=== PATIENT | female | born 1990 | race Caucasian/White ===

== ENCOUNTER 2018-04-06 15:01 | Emergency (ER) | payer OTHER ==
[~2018-04-06] VITALS: Ht 170.2 cm; Wt 72.8 kg
[~2018-04-06 15:01] MED LIST: FIORICET,ESG1 TABLET PO; NAPROSYN500 MG PO; PRENATAL TABLE1 EAC3 PO; TUMS500 MG PO
[2018-04-06] MEDS ORDERED: BUSPAR10 MG PO (15:11)
[2018-04-06] MEDS ORDERED: SERTRALINE HCL100 MG PO (15:12)
[2018-04-06 15:27] LABS: APPEARANCE SL.HAZY ((CLEAR)); BILIRUBIN NEGATIVE; BLOOD LARGE; COLOR STRAW ((YELLOW)); GLUCOSE (STRIP) NEGATIVE; KETONES NEGATIVE; LEUKOCYTES NEGATIVE; NITRITE NEGATIVE; PROTEIN (STRIP) NEGATIVE; SPECIFIC GRAVITY 1.006 (1.000-1.030); UROBILINOGEN 0.2 MG/DL (0.2-1.0)
[2018-04-06 15:30] LABS: HEMATOCRIT 36.2 % (36.0-46.0); HEMOGLOBIN 12.3 G/DL (11.9-15.5); MCH 29.4 PG (29.0-34.0); MCV 86.4 FL (83-99); PLATELET COUNT 366 K/uL (156-360); RBC DIS.WIDTH-CV 13.3 % (11.8-14.6); RBC DIS.WIDTH-SD 41.3 % (39-53); RED BLOOD COUNT 4.19 M/uL (3.80-5.20); WHITE BLOOD COUNT 12.2 K/uL (4.1-10.2)
[2018-04-06 15:31] LABS: BACTERIA RARE /HPF; EPITHELIAL CELLS 1+ /HPF; MUCUS TRACE /LPF; RED BLOOD CELLS 30-40 /HPF (0-5); UCUL ADDED? NO; WHITE BLOOD CELLS 0-5 /HPF (0-5)
[2018-04-06 15:42] LABS: ALBUMIN 4.4 g/dL (3.2-4.8); CHLORIDE 103 mEq/L (99-109); POTASSIUM 4.1 mEq/L (3.7-5.4); SODIUM 138 mEq/L (136-147)
[2018-04-06 15:44] LABS: GLUCOSE 88 mg/dL (70-99)
[2018-04-06 15:45] LABS: TOTAL PROTEIN 7.4 g/dL (6.4-8.3)
[2018-04-06 15:46] LABS: TOTAL BILIRUBIN 1.1 mg/dL (0.0-1.0)
[2018-04-06 15:48] LABS: ALKALINE PHOSPHATASE 64 IU/L (3-129); CREATININE 0.7 mg/dL (0.6-1.3); GFR ESTIMATE (CALCULATED) > 59 mL/min/
[2018-04-06 15:49] LABS: UREA NITROGEN (BUN) 9 mg/dL (9-23)
[2018-04-06 15:50] LABS: AST (GOT) 16 IU/L (2-34)
[2018-04-06 15:51] LABS: ALT (GPT) 17 IU/L (3-49)
[2018-04-06 15:57] LABS: QUANTITATIVE HCG < 4.0 MIU/ML
[2018-04-06 16:31] LABS: SOURCE SWAB
[2018-04-06 17:13] VITALS: BP 120/83
== END 2018-04-06 17:19 | disposition hospice, inpatient (51) ==
LOC: EME 15:01
PROVIDERS: Physician Assistant Medical
DX: N93.9 Abnormal uterine and vaginal bleeding, unspecified (principal); F90.9 Attention-deficit hyperactivity disorder, unspecified type; F41.9 Anxiety disorder, unspecified; F32.9 Major depressive disorder, single episode, unspecified; F17.200 Nicotine dependence, unspecified, uncomplicated; Z86.19 Personal history of other infectious and parasitic diseases
CPT/HCPCS: 80053; 81003; 84702; 85027; 87210; 87480; 87491; 87510; 87591; 87660; 99281; 99284